=== PATIENT | female | born 1975 | race Two or more races ===

== ENCOUNTER → 2023-09-28 13:30 | Outpatient (REF) | payer OTHER, SELFPAY | LOC: RAD 13:30 | PROVIDERS: ATTENDING PHYSICIAN Nurse Practitioner Family | DX: M25.562 Pain in left knee (principal) | CPT/HCPCS: 73564 ==

== ENCOUNTER → 2024-06-30 09:59 | Outpatient (REF) | payer OTHER, SELFPAY | LOC: MRI 09:59 | PROVIDERS: ATTENDING PHYSICIAN Nurse Practitioner Family | DX: G44.52 New daily persistent headache (NDPH) (principal); D11.0 Benign neoplasm of parotid gland | CPT/HCPCS: 70553; A9575 ==

== ENCOUNTER → 2024-10-16 20:17 | Outpatient (REF) | payer OTHER, SELFPAY | LOC: MRI 3T 20:17 | PROVIDERS: ATTENDING PHYSICIAN Nurse Practitioner Family | DX: D37.030 Neoplasm of uncertain behavior of the parotid salivary glands (principal) | CPT/HCPCS: 70543; A9575 ==